=== PATIENT | female | born 1975 | race Caucasian/White ===

== ENCOUNTER → 2017-05-03 | Outpatient (CLI) | payer BC | LOC: LAB 15:33 | DX: L02.211 Cutaneous abscess of abdominal wall (principal) ==

== ENCOUNTER → 2017-11-02 | Outpatient (CLI) | payer BC ==
[2017-11-02 10:54] LABS: CLUE CELLS NOT OBSERVED (Not Observd)
== END ==
LOC: LAB 10:17
PROVIDERS: Physician Assistant
DX: N73.9 Female pelvic inflammatory disease, unspecified (principal); Z88.8 Allergy status to other drugs, medicaments and biological substances
CPT/HCPCS: Q0111

== ENCOUNTER → 2018-01-14 | Outpatient (CLI) | payer BC ==
[2018-01-14 11:24] LABS: BUN/CREATININE RATIO 27.7 (6.0-26.0); CALCIUM 8.6 mg/dL (8.4-10.2); POTASSIUM 4.1 mmol/L (3.6-5.0)
== END ==
LOC: LAB 10:29
PROVIDERS: Nurse Practitioner Family
DX: Z01.419 Encounter for gynecological examination (general) (routine) without abnormal findings (principal); Z13.1 Encounter for screening for diabetes mellitus; Z13.220 Encounter for screening for lipoid disorders

== ENCOUNTER → 2018-01-31 | Outpatient (CLI) | payer BC | LOC: MAMMO 14:00 | DX: Z12.31 Encounter for screening mammogram for malignant neoplasm of breast (principal) ==

== ENCOUNTER → 2018-12-06 | Outpatient (CLI) | payer BC ==
[~2018-12-06] VITALS: Ht 172.7 cm; Wt 98.6 kg
[~2018-12-06] MED LIST: MACROBID 100 M100 MG PO; PHENERGAN 25 TA25 MG PO; ZOFRAN4 M2 PO
[2018-12-06 12:25] VITALS: BP 115/68
[2018-12-06 12:55] LABS: ALBUMIN 3.9 g/dL (3.5-5.0); CALCIUM 8.7 mg/dL (8.4-10.2); POTASSIUM 3.6 mmol/L (3.6-5.0); TOTAL BILIRUBIN 0.8 mg/dL (0.2-1.3); TOTAL PROTEIN 7.2 g/dL (6.3-8.2)
[2018-12-06 12:58] LABS: HEMATOCRIT 41.8 % (37.0-47.0); HEMOGLOBIN 14.1 g/dL (12.5-16.0); RED BLOOD COUNT 4.5 M/mm3 (4.10-5.30); RED CELL DISTRIBUTION WIDTH 12.9 % (11.5-14.5); WHITE BLOOD COUNT 4.5 K/mm3 (4.8-10.8)
[2018-12-06 13:52] VITALS: BP 121/72
== END ==
LOC: AMSURD 12:00
PROVIDERS: Nurse Practitioner
DX: R51 Headache (principal); R11.0 Nausea; N39.0 Urinary tract infection, site not specified; R42 Dizziness and giddiness
CPT/HCPCS: J1885; J2405; J7030

== ENCOUNTER 2018-12-08 07:14 | Emergency (ER) | payer BC ==
[~2018-12-08] VITALS: Ht 175.3 cm; Wt 90.9 kg
[~2018-12-08 07:14] MED LIST changes: -PHENERGAN 25 TA25 MG PO; -ZOFRAN4 M2 PO
[2018-12-08] MEDS ORDERED: ZOFRAN4 M2 PO ×2 (07:29→10:51)
[2018-12-08 08:18] LABS: EOS % 0.6 % (1.0-5.0); HEMOGLOBIN 13.4 g/dL (12.5-16.0); MEAN CELL VOLUME 92 fl (78-100); MEAN CORPUSCULAR HEMOGLOBIN 32 pg (27-31); MEAN CORPUSCULAR HGB CONC 34 g/dL (33-37); MEAN PLATELET VOLUME 9.8 fl (7.4-10.4); MONO # 0.3 (0.20-0.80); NEU # 4.2 (1.40-6.50); PLATELET COUNT 170 K/mm3 (130-400); RED BLOOD COUNT 4.24 M/mm3 (4.10-5.30); RED CELL DISTRIBUTION WIDTH 12.7 % (11.5-14.5); WHITE BLOOD COUNT 5.3 K/mm3 (4.8-10.8)
[2018-12-08 08:33] LABS: LYMPH# 0.7 (1.50-4.00)
[2018-12-08 08:36] LABS: ALBUMIN 3.8 g/dL (3.5-5.0); CALCIUM 8.9 mg/dL (8.4-10.2); POTASSIUM 3.9 mmol/L (3.6-5.0); TOTAL BILIRUBIN 0.4 mg/dL (0.2-1.3)
[2018-12-08 10:45] LABS: URINE APPEARANCE HAZY; URINE BILIRUBIN NEGATIVE (NEGATIVE); URINE BLOOD 50 ery/uL (NEGATIVE); URINE COLOR YELLOW; URINE GLUCOSE NEGATIVE (NEGATIVE); URINE KETONE NEGATIVE (NEGATIVE); URINE LEUKOCYTE ESTERASE NEGATIVE (NEGATIVE); URINE NITRATE NEGATIVE (NEGATIVE); URINE PROTEIN(semi-quant) NEGATIVE (NEGATIVE); URINE UROBILINOGEN NORMAL (NORMAL); URINE WBC 0-1 /hpf (0-3)
[2018-12-08] MEDS ORDERED: PHENERGAN 25 TA25 MG PO (10:51)
[2018-12-08 11:08] VITALS: BP 120/67
== END 2018-12-08 11:08 | disposition home or self-care (01) ==
LOC: ED 07:14
PROVIDERS: Nurse Practitioner Primary Care
DX: A08.4 Viral intestinal infection, unspecified (principal)
CPT/HCPCS: J1885; J2405; J7030

== ENCOUNTER → 2019-03-09 | Outpatient (CLI) | payer BC ==
[~2019-03-09] MED LIST changes: +PHENERGAN 25 TA25 MG PO; +ZOFRAN4 M2 PO
== END ==
LOC: RAD 14:10
DX: M17.11 Unilateral primary osteoarthritis, right knee (principal)

== ENCOUNTER 2019-06-08 15:00 | Outpatient (RCR) | payer BC | END 2019-06-08 15:30 | disposition still patient (30) | LOC: PT 15:00 | DX: M17.11 Unilateral primary osteoarthritis, right knee (principal) ==

== ENCOUNTER → 2019-07-12 | Outpatient (CLI) | payer BC ==
[2019-07-12 17:00] LABS: EOS # 0.1 (0.04-0.40); EOS % 1.2 % (1.0-5.0); HEMATOCRIT 40.4 % (37.0-47.0); HEMOGLOBIN 13.4 g/dL (12.5-16.0); LYMPH# 2.3 (1.50-4.00); MEAN CELL VOLUME 93 fl (78-100); MEAN CORPUSCULAR HEMOGLOBIN 31 pg (27-31); MEAN CORPUSCULAR HGB CONC 33 g/dL (33-37); MEAN PLATELET VOLUME 9.9 fl (7.4-10.4); MONO # 0.3 (0.20-0.80); NEU # 3.1 (1.40-6.50); PLATELET COUNT 258 K/mm3 (130-400); RED BLOOD COUNT 4.36 M/mm3 (4.10-5.30); RED CELL DISTRIBUTION WIDTH 12.9 % (11.5-14.5); WHITE BLOOD COUNT 5.8 K/mm3 (4.8-10.8)
[2019-07-12 17:07] LABS: ALBUMIN 4.3 g/dL (3.5-5.0); POTASSIUM 3.9 mmol/L (3.5-5.1)
[2019-07-12 17:08] LABS: CALCIUM 9.5 mg/dL (8.3-10.5)
[2019-07-12 17:09] LABS: TOTAL PROTEIN 7.6 g/dL (6.4-8.3)
[2019-07-12 17:11] LABS: TOTAL BILIRUBIN 0.5 mg/dL (0.2-1.2)
[2019-07-13 20:04] LABS: FOLLICLE STIMULATING HORMONE 3.7 mIU/mL (())
== END ==
LOC: LAB 16:35
PROVIDERS: Physician Assistant
DX: Z13.1 Encounter for screening for diabetes mellitus (principal); Z13.220 Encounter for screening for lipoid disorders; N93.8 Other specified abnormal uterine and vaginal bleeding; Z83.3 Family history of diabetes mellitus; E28.2 Polycystic ovarian syndrome; E66.9 Obesity, unspecified; R10.9 Unspecified abdominal pain

== ENCOUNTER → 2020-01-02 | Outpatient (CLI) | payer BC | LOC: LAB 12:09 | DX: R05 Cough (principal); R06.02 Shortness of breath; R19.7 Diarrhea, unspecified ==

== ENCOUNTER → 2022-02-09 | Outpatient (CLI) | payer BC | LOC: MAMMO 08:29 | DX: Z12.31 Encounter for screening mammogram for malignant neoplasm of breast (principal) ==

== ENCOUNTER → 2022-09-30 | Outpatient (CLI) | payer BC | LOC: RAD 09:14 | DX: M17.0 Bilateral primary osteoarthritis of knee (principal); M25.862 Other specified joint disorders, left knee ==

== ENCOUNTER → 2023-08-02 | Outpatient (CLI) | payer BC | LOC: LAB 09:37 | DX: G43.909 Migraine, unspecified, not intractable, without status migrainosus (principal); Z20.822 Contact with and (suspected) exposure to COVID-19 ==

== ENCOUNTER → 2023-10-26 | Outpatient (CLI) | payer BC | LOC: MAMMO 14:57 | DX: Z12.31 Encounter for screening mammogram for malignant neoplasm of breast (principal) ==

== ENCOUNTER → 2024-10-25 | Outpatient (CLI) | payer BC ==
[2024-10-25 10:31] LABS: ALBUMIN 4.1 g/dL (3.5-5.0)
[2024-10-25 10:32] LABS: BASO # 0.03 K/mm3 (0.02-0.10); EOS # 0.14 K/mm3 (0.04-0.40); EOS % 2.2 % (1.0-5.0); HEMOGLOBIN 14.1 g/dL (12.5-16.0); LYMPH# 2.54 K/mm3 (1.50-4.00); MEAN CELL VOLUME 97 fl (78-100); MEAN CORPUSCULAR HEMOGLOBIN 33 pg (27-31); MEAN CORPUSCULAR HGB CONC 34 g/dL (33-37); MEAN PLATELET VOLUME 9.6 fl (7.4-10.4); MONO # 0.34 K/mm3 (0.20-0.80); NEU # 3.17 K/mm3 (1.40-6.50); PLATELET COUNT 300 K/mm3 (130-400); RED BLOOD COUNT 4.33 M/mm3 (4.10-5.30); WHITE BLOOD COUNT 6.2 K/mm3 (4.8-10.8)
[2024-10-25 10:33] LABS: CALCIUM 9.4 mg/dL (8.3-10.5)
[2024-10-25 10:34] LABS: TOTAL PROTEIN 7.5 g/dL (6.4-8.3)
[2024-10-25 10:36] LABS: TOTAL BILIRUBIN 0.3 mg/dL (0.2-1.2)
== END ==
LOC: LAB 09:57
PROVIDERS: Nurse Practitioner Family
DX: R42 Dizziness and giddiness (principal)

== ENCOUNTER → 2024-11-22 | Outpatient (CLI) | payer BC | LOC: MAMMO 14:27 | DX: Z12.31 Encounter for screening mammogram for malignant neoplasm of breast (principal) ==